=== PATIENT | female | born 2000 | race Caucasian/White ===

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

== ENCOUNTER → 2022-06-16 | Outpatient (CLI) | payer BC ==
[~2022-06-16] MED LIST changes: +ALDACTONE 25MG25 MG PO
== END ==
LOC: RAD 16:14 → LAB 16:14
DX: R05.9 Cough, unspecified (principal)